=== PATIENT | female | born 1990 | race Caucasian/White ===

== ENCOUNTER → 2020-10-15 10:29 | Outpatient (CLI) | payer OTHER, SELFPAY ==
[2020-10-15 11:21] LABS: Add Manual Diff / Slide Review NO; Basophils Absolute Auto 100 /uL (0-100); Basophils Percent Auto 0.8 % (0-2); Eosinophils Absolute Auto 400 /uL (0-450); Eosinophils Percent Auto 4.9 % (2-4); Hematocrit 37.6 % (36-46); Hemoglobin 12.7 g/dL (12.0-16.0); Lymphocytes Absolute Auto 2400 /uL (1100-4500); Lymphocytes Percent Auto 29.2 % (25-40); Mean Corpuscular HGB Conc 33.9 % (30-36); Mean Corpuscular Hemoglobin 31.7 PG (26-34); Mean Corpuscular Volume 93.6 fL (80-100); Monocytes Absolute Auto 500 /uL (0-900); Monocytes Percent Auto 6.5 % (3-14); Neutrophils Absolute Auto 4700 /uL (1500-7000); Neutrophils Percent Auto 58.6 % (50-75); Platelet Count 284 X10^3/uL (150-400); Red Blood Cell Count 4.02 X10^6/uL (4.0-5.2); Red Cell Distribution Width 13.3 % (11.6-14.8); White Blood Cell Count 8.1 X10^3/uL (4.5-11.0)
[2020-10-15 11:46] LABS: Alanine Aminotransferase 11 IU/L (<35); Albumin 4.3 g/dL (3.5-5.0); Albumin Globulin Ratio 1.2 (1.0-2.8); Alkaline Phosphatase 42 U/L (38-126); Aspartate Aminotransferase 23 IU/L (14-36); BUN Creatinine Ratio 14.9 (6-22); Bilirubin Total 0.5 mg/dL (0.2-1.3); Blood Urea Nitrogen 11 mg/dL (7-17); Calcium 9.4 mg/dL (8.4-10.2); Carbon Dioxide 27 mmol/L (22-32); Chloride 103 mmol/L (98-107); Estimated Glomerular Filt Rate > 60.0 mL/min (>60); Globulin 3.7 g/dL (1.7-4.1); Glucose 94 mg/dL (70-100); HEMOLYSIS < 15 (0-50); Sodium 135 mmol/L (137-145)
[2020-10-15 12:03] LABS: Free T4, Direct Thyroxine 1.37 ng/dL (0.78-2.19)
== END ==
PROVIDERS: PCP Registered Nurse; Referring Provider Registered Nurse; Visit Provider Registered Nurse
DX: R53.83 Other fatigue (principal); D64.9 Anemia, unspecified
CPT/HCPCS: 36415; 80053; 84439; 84443; 85025

== ENCOUNTER → 2020-10-21 11:35 | Outpatient (CLI) | payer OTHER, SELFPAY ==
[2020-10-21 13:31] LABS: COVID19 -Nasal RAPID Negative (Negative)
== END ==
PROVIDERS: PCP Registered Nurse; Visit Provider Physician Assistant
DX: Z01.812 Encounter for preprocedural laboratory examination (principal); Z20.822 Contact with and (suspected) exposure to COVID-19
CPT/HCPCS: 87635

== ENCOUNTER → 2021-06-11 09:28 | Outpatient (CLI) | payer OTHER, SELFPAY ==
[2021-06-13 13:52] LABS: Interpretation Negative (Negative)
[2021-06-14 13:09] LABS: Almond IgE <0.10 kU/L (Class 0); Cashew Nut IgE <0.10 kU/L (Class 0); Codfish Allergy IgE < 0.10 kU/L (Class 0); Egg White IgE <0.10 kU/L (Class 0); Hazelnut IgE <0.10 kU/L (Class 0); Milk IgE <0.10 kU/L (Class 0); Peanut IgE <0.10 kU/L (Class 0); Salmon Allergy IgE < 0.10 kU/L (Class 0); Scallop Allergy IgE < 0.10 kU/L (Class 0); Sesame seed Allergy IgE < 0.10 kU/L (Class 0); Shrimp IgE <0.10 kU/L (Class 0); Soybean IgE <0.10 kU/L (Class 0); Tuna Allergy IgE < 0.10 kU/L (Class 0); Walnut IgE <0.10 kU/L (Class 0); Wheat Allergy IgE < 0.10 kU/L (Class 0)
== END ==
PROVIDERS: PCP Registered Nurse; Referring Provider Registered Nurse; Visit Provider Registered Nurse
DX: K30 Functional dyspepsia (principal); R14.2 Eructation
CPT/HCPCS: 36415; 83013; 86003